=== PATIENT | male | born 1960 | race Caucasian/White ===

== ENCOUNTER 2018-08-06 10:58 | Emergency (ER) | payer OTHER ==
[~2018-08-06] VITALS: Wt 108.9 kg
--- NOTE | ~2018-08-06 | EKG ---
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: : 1960 Requested By: DARELL JOSUE Order Number: [id number] Reading MD: Magnus Thomason MD Measurements Intervals [place] Rate: 93 P: 23 DE: 201 QRS: 3 QRSD: 111 T: 112 QT: 383 QTc: 477 Interpretive Statements Sinus rhythm Borderline prolonged DE interval Left atrial enlargement Abnormal R-wave progression, late transition Abnormal inferior Q waves Abnormal T, consider ischemia, lateral leads Minimal ST elevation, anterolateral leads No previous ECG available for comparison Electronically Signed On 08-07-2018 4:57:38 PST by Magnus Thomason MD CM:EKGRPT:ELECTROCARDIOGRAM REPORT [id number] DARELL JOSUE MD EPIPHMAIKOL DRAFT REPORT DARELL JOSUE MD
[2018-08-06 11:17] LABS: BASO # 0.1 10*3/uL (0.0-0.1); BASO % 0.4 % (0.0-1.0); EOS # 0.3 10*3/uL (0.0-0.4); EOS % 1.7 % (1.0-4.0); HEMATOCRIT 46.3 % (42.0-52.0); HEMOGLOBIN 15.7 g/dl (14.0-18.0); LYMPH # 3.2 10*3/uL (1.3-4.4); LYMPH % 20.6 % (27.0-41.0); MEAN CELL VOLUME 82.7 fl (80.0-94.0); MEAN CORPUSCULAR HGB CONC 33.9 g/dl (33.0-37.0); MEAN PLATELET VOLUME 10.8 fl (9.6-12.3); MONO # 1.3 10*3/uL (0.1-1.0); MONO % 8.1 % (3.0-9.0); NEUT # 10.8 10*3/uL (2.3-7.9); NEUT % 68.8 % (47.0-73.0); PLATELET COUNT AUTOMATED 218 10*3/uL (130-400); WHITE BLOOD COUNT 15.6 10*3/uL (4.8-10.8)
[2018-08-06 11:27] LABS: ACT PARTIAL THROMBO TIME 22.9 SECONDS (20.8-31.5); INTERNATIONAL NORM RATIO 0.9 (2.0-3.5)
[2018-08-06 11:34] LABS: ALBUMIN 3.3 gm/dl (3.1-4.5); ALKALINE PHOSPHATASE 100 U/L (45-117); BUN 11 mg/dl (7-24); CHLORIDE 104 mmol/L (98-107); CREATININE 0.89 mg/dL (0.70-1.30); POTASSIUM 3.8 mmol/L (3.5-5.1); SGOT/AST 16 IU/L (3-35); SGPT/ALT 30 U/L (12-78); SODIUM 136 mmol/L (136-145); TOTAL PROTEIN 7.4 gm/dL (6.4-8.2)
[2018-08-06 12:40] LABS: URINE AMPHETAMINES < 1000 (1000ng/ml); URINE BARBITURATES < 200 (200ng/ml); URINE BENZODIAZEPINES < 200 (200ng/ml); URINE CANNABINOIDS (THC) < 50 (50ng/ml); URINE COCAINE < 300 (300ng/ml); URINE METHADONE < 300 (300ng/ml)
[2018-08-06 12:41] LABS: URINE OPIATES < 300 (300ng/ml)
[2018-08-06 12:48] LABS: URINE PHENCYCLIDINE < 25 (25ng/ml)
== END 2018-08-06 15:02 | disposition short-term general hospital (02) ==
LOC: ED 10:58
PROVIDERS: Emergency Medicine
DX: I16.0 Hypertensive urgency (principal); I25.10 Atherosclerotic heart disease of native coronary artery without angina pectoris; F17.210 Nicotine dependence, cigarettes, uncomplicated; Z95.1 Presence of aortocoronary bypass graft; Z91.040 Latex allergy status; Z88.6 Allergy status to analgesic agent; Z95.5 Presence of coronary angioplasty implant and graft

== ENCOUNTER → 2019-06-16 | Emergency (ER) | payer OTHER ==
[~2019-06-16] VITALS: Ht 185.4 cm; Wt 108.9 kg
--- NOTE | ~2019-06-16 | EKG ---
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
[2019-06-16 15:03] LABS: BASO # 0.1 10*3/uL (0.0-0.1); BASO % 0.7 % (0.0-1.0); EOS # 0.2 10*3/uL (0.0-0.4); EOS % 2.5 % (1.0-4.0); HEMATOCRIT 46.9 % (42.0-52.0); HEMOGLOBIN 16.1 g/dl (14.0-18.0); LYMPH # 2.3 10*3/uL (1.3-4.4); LYMPH % 24.6 % (27.0-41.0); MEAN CELL VOLUME 87.2 fl (80.0-94.0); MEAN CORPUSCULAR HGB 29.9 pg (27.0-31.0); MEAN CORPUSCULAR HGB CONC 34.3 g/dl (33.0-37.0); MEAN PLATELET VOLUME 10.9 fl (9.6-12.3); MONO % 10.7 % (3.0-9.0); NEUT # 5.8 10*3/uL (2.3-7.9); NEUT % 61.1 % (47.0-73.0); PLATELET COUNT AUTOMATED 223 10*3/uL (130-400); RED BLOOD COUNT 5.38 10*6/uL (4.50-5.90); RED CELL DISTRI WIDTH 14.2 % (0-14.5); WHITE BLOOD COUNT 9.5 10*3/uL (4.8-10.8)
[2019-06-16 15:22] LABS: ALBUMIN 3.5 gm/dl (3.1-4.5); ALKALINE PHOSPHATASE 89 U/L (45-117); BUN 14 mg/dl (7-24); CHLORIDE 104 mmol/L (98-107); CREATININE 1.24 mg/dL (0.70-1.30); POTASSIUM 3.9 mmol/L (3.5-5.1); SGOT/AST 21 IU/L (3-35); SGPT/ALT 41 U/L (12-78); SODIUM 137 mmol/L (136-145); TOTAL PROTEIN 7.1 gm/dL (6.4-8.2); TROPONIN I < 0.015 ng/ml (<0.045)
[2019-06-16 15:23] LABS: ACT PARTIAL THROMBO TIME 23.6 SECONDS (20.0-32.1); INTERNATIONAL NORM RATIO 0.9 (2.0-3.5)
== END ==
LOC: ED 14:40
PROVIDERS: Emergency Medicine
DX: R07.89 Other chest pain (principal); I16.0 Hypertensive urgency; I25.10 Atherosclerotic heart disease of native coronary artery without angina pectoris; I25.2 Old myocardial infarction; F17.210 Nicotine dependence, cigarettes, uncomplicated; Z88.6 Allergy status to analgesic agent; Z91.041 Radiographic dye allergy status; Z95.1 Presence of aortocoronary bypass graft